=== PATIENT | female | born 1960 | race African-American/Black ===

== ENCOUNTER 2024-02-26 17:00 | Outpatient (RCR) | payer SELFPAY | END 2024-03-23 23:59 | LOC: NS 17:00 | DX: Z71.3 Dietary counseling and surveillance (principal) ==

== ENCOUNTER 2024-08-29 08:46 | Outpatient (RCR) | payer SELFPAY | END 2024-09-21 23:59 | LOC: NS 08:46 | DX: Z71.3 Dietary counseling and surveillance (principal) ==